=== PATIENT | female | born 1970 | race Native Hawaiian/Other Pacific Islander ===

== ENCOUNTER 2020-09-30 20:43 | Emergency (ER) | payer OTHER ==
[~2020-09-30] VITALS: Ht 162.6 cm; Wt 68.5 kg
[2020-09-30 20:50] VITALS: BP 161/90; TEMP 99.2
== END 2020-09-30 22:30 | disposition home or self-care (01) ==
LOC: ED 20:43
DX: N39.0 Urinary tract infection, site not specified (principal); N30.81 Other cystitis with hematuria
CPT/HCPCS: 81000; 87077; 87086; 87088; 87186; 96372; 99283; J0696